=== PATIENT | female | born 1975 | race Caucasian/White ===

== ENCOUNTER 2017-12-28 10:03 | Emergency (ER) | payer OTHER ==
[~2017-12-28] VITALS: Ht 182.9 cm; Wt 95.7 kg
[2017-12-28] MEDS ORDERED: ONDANSETRON ODT 4 MG PO ONE (10:30)
[2017-12-28] MEDS ORDERED: OXYcodone/APAP 10/325MG TABLET PO ONE (10:30)
[2017-12-28] MEDS ORDERED: MEDR10TA PO (10:38)
[2017-12-28] MEDS ORDERED: ONDANSETRON ODT 4 MG ONE (10:46)
[2017-12-28] MEDS ORDERED: OXYcodone/APAP 10/325MG TABLET ONE (10:46)
[2017-12-28 11:08] LABS: BASOPHILS # (AUTO) 0.04 x10^3/uL (0-0.1); BASOPHILS % (AUTO) 1 % (0-1); EOSINOPHILS # (AUTO) 0.23 x10^3/uL (0-0.4); EOSINOPHILS % (AUTO) 3 % (1-7); LYMPHOCYTES # (AUTO) 2.43 x10^3/uL (1-3.4); LYMPHOCYTES % (AUTO) 28 % (22-44); MD NO; MEAN CORPUSCULAR HEMOGLOBIN 31.4 pg (27.0-34.8); MEAN CORPUSCULAR HGB CONC 34.7 g/dL (32.4-35.8); MEAN CORPUSCULAR VOLUME 90.5 fL (80-100); MEAN PLATELET VOLUME 8.8 fL (7.4-10.4); MONOCYTES # (AUTO) 0.53 x10^3/uL (0.2-0.8); MONOCYTES % (AUTO) 6 % (2-9); NEUTROPHILS # (AUTO) 5.61 x10^3/uL (1.8-6.8); NEUTROPHILS % (AUTO) 63 % (42-75); PLATELET COUNT 232 x10^3/uL (130-400); RED BLOOD COUNT 4.37 x10^6/uL (3.82-5.3); RED CELL DISTRIBUTION WIDTH 13.1 % (9.6-15.2)
[2017-12-28 11:12] LABS: ALANINE AMINOTRANSFERASE 54 U/L (12-78); ALBUMIN 3.3 g/dL (3.4-5.0); ANION GAP 7 mmol/L (5-15); CALCIUM 8.3 mg/dL (8.5-10.1); CHLORIDE 106 mmol/L (98-107); CREATININE 0.93 mg/dL (0.55-1.02)
[2017-12-28 11:29] LABS: ALKALINE PHOSPHATASE 46 U/L (45-117); BILIRUBIN,TOTAL 0.2 mg/dL (0.2-1.0); TOTAL PROTEIN 6.8 g/dL (6.4-8.2)
[2017-12-28 11:30] LABS: MICROSCOPIC NOT IND
[2017-12-28 11:33] LABS: CULTURE INDICATED? NO
[2017-12-28 13:46] VITALS: BP 114/74
== END 2017-12-28 13:50 | disposition home or self-care (01) ==
LOC: ED 11:33
DX: O03.4 Incomplete spontaneous abortion without complication (principal); O99.331 Smoking (tobacco) complicating pregnancy, first trimester; Z3A.01 Less than 8 weeks gestation of pregnancy
CPT/HCPCS: 36415; 76830; 80053; 81003; 84702; 85025; 86901; 99285; Q0162

== ENCOUNTER → 2018-02-26 | Outpatient (CLI) | payer OTHER ==
[~2018-02-26] MED LIST: MEDR10TA PO; None at this Time
[2018-02-26 15:07] LABS: MICROSCOPIC NOT IND
[2018-02-26 15:08] LABS: BASOPHILS # (AUTO) 0.05 x10^3/uL (0-0.1); BASOPHILS % (AUTO) 1 % (0-1); EOSINOPHILS # (AUTO) 0.21 x10^3/uL (0-0.4); EOSINOPHILS % (AUTO) 3 % (1-7); LYMPHOCYTES # (AUTO) 2.63 x10^3/uL (1-3.4); LYMPHOCYTES % (AUTO) 36 % (22-44); MD NO; MEAN CORPUSCULAR HEMOGLOBIN 30.7 pg (27.0-34.8); MEAN CORPUSCULAR HGB CONC 34.2 g/dL (32.4-35.8); MEAN CORPUSCULAR VOLUME 89.8 fL (80-100); MEAN PLATELET VOLUME 9.2 fL (7.4-10.4); MONOCYTES # (AUTO) 0.54 x10^3/uL (0.2-0.8); MONOCYTES % (AUTO) 7 % (2-9); NEUTROPHILS # (AUTO) 3.95 x10^3/uL (1.8-6.8); NEUTROPHILS % (AUTO) 54 % (42-75); PLATELET COUNT 232 x10^3/uL (130-400); RED BLOOD COUNT 4.95 x10^6/uL (3.82-5.3); RED CELL DISTRIBUTION WIDTH 13.4 % (9.6-15.2)
[2018-02-26 15:12] LABS: CULTURE INDICATED? NO
[2018-02-26 15:19] LABS: ALANINE AMINOTRANSFERASE 40 U/L (12-78); ALBUMIN 4.1 g/dL (3.4-5.0); ANION GAP 5 mmol/L (5-15); CALCIUM 8.8 mg/dL (8.5-10.1); CHLORIDE 108 mmol/L (98-107); CREATININE 1.05 mg/dL (0.55-1.02)
[2018-02-26 15:23] LABS: ALKALINE PHOSPHATASE 55 U/L (45-117); BILIRUBIN,TOTAL 0.2 mg/dL (0.2-1.0); TOTAL PROTEIN 7.9 g/dL (6.4-8.2)
== END | disposition home or self-care (01) ==
LOC: STAR 13:58
PROVIDERS: ATTEND Obstetrics & Gynecology Gynecology
DX: Z01.818 Encounter for other preprocedural examination (principal); M54.16 Radiculopathy, lumbar region
CPT/HCPCS: 36415; 80053; 81003; 84702; 85025

== ENCOUNTER 2018-03-13 10:17 | Day surgery (SDC) | payer OTHER ==
[~2018-03-13] VITALS: Ht 180.3 cm; Wt 102.2 kg
[2018-03-13] MEDS ORDERED: MIDAZOLAM 1 MG/ML, 2ML ONE (10:33)
[2018-03-13] MEDS ORDERED: FENTANYL PF 250 MCG/5ML ONE (10:34)
[2018-03-13] MEDS ORDERED: LACTATED RINGERS 1,000 ML IV SCH (11:02)
[2018-03-13 11:03] VITALS: BP 130/89
[2018-03-13] MEDS ORDERED: ACETAMINOPHEN 500 MG TABLET PO ONE (11:30)
[2018-03-13] MEDS ORDERED: GABAPENTIN 300 MG CAPSULE PO ONE (11:30)
[2018-03-13] MEDS ORDERED: SILVER NITRATE STICK TP ONE (11:58)
[2018-03-13] MEDS ORDERED: BUPIVACAINE/PF-EPI 0.25% 1:200K ONE (11:58)
[2018-03-13] MEDS ORDERED: PROMETHAZINE 25 MG/ML, 1ML IM PRN ×2 (12:00)
[2018-03-13] MEDS ORDERED: MORPHINE SULFATE 4 MG/ML, 1ML IVPush PRN (12:00)
[2018-03-13] MEDS ORDERED: LABETALOL 5MG/ML, 20ML IV PRN (12:00)
[2018-03-13] MEDS ORDERED: PROMETHAZINE 25 MG/ML, 1ML IV PRN (12:00)
[2018-03-13] MEDS ORDERED: PROMETHAZINE 12.5 MG SUPP PR PRN (12:00)
[2018-03-13] MEDS ORDERED: ONDANSETRON 2MG/ML, 2ML IV PRN (12:00)
[2018-03-13] MEDS ORDERED: MEPERIDINE/PF 25MG/0.5ML IVPush PRN (12:00)
[2018-03-13] MEDS ORDERED: HYDROmorphone 1 MG/ML, 1ML IV PRN (12:00)
[2018-03-13] MEDS ORDERED: PROMETHAZINE 25 MG SUPP PR PRN (12:00)
[2018-03-13] MEDS ORDERED: OXYcodone 5 MG/5 ML ORAL.SOL UDC PO PRN (12:00)
[2018-03-13] MEDS ORDERED: ONDANSETRON ODT 8 MG PO PRN (12:00)
[2018-03-13] MEDS ORDERED: hydrALAzine 20 MG/ML, 1ML IV PRN (12:00)
[2018-03-13] MEDS ORDERED: FENTANYL PF 100 MCG/2ML IV PRN (12:00)
[2018-03-13] MEDS ORDERED: ONDANSETRON 2MG/ML, 2ML ONE (12:38)
[2018-03-13] MEDS ORDERED: ROCURONIUM 10 MG/ML,10ML ONE (12:38)
[2018-03-13] MEDS ORDERED: PROPOFOL 10 MG/ML, 20ML ONE (12:38)
[2018-03-13] MEDS ORDERED: GLYCOPYRROLATE 0.2MG/1ML, 5ML ONE (12:38)
[2018-03-13] MEDS ORDERED: DEXAMETHASONE 4 MG/ML, 1ML ONE (12:38)
[2018-03-13] MEDS ORDERED: CEFAZOLIN 1,000 MG ONE (12:38)
[2018-03-13] MEDS ORDERED: NEOSTIGMINE 1 MG/ML, 10ML ONE (12:38)
[2018-03-13] MEDS ORDERED: FENTANYL PF 100 MCG/2ML ONE (13:10)
[2018-03-13] MEDS ORDERED: OXYcodone 5 MG/5 ML ORAL.SOL UDC ONE (13:36)
[2018-03-13] MEDS ORDERED: KETOROLAC 30 MG/1 ML ONE (13:38)
[2018-03-13] MEDS ORDERED: KETOROLAC 30 MG/1 ML IVPush PRN (14:00)
[2018-03-13] MEDS ORDERED: MEPERIDINE/PF 50 MG/ML ONE (14:01)
== END 2018-03-13 16:00 | disposition home or self-care (01) ==
LOC: OUT 10:17
PROVIDERS: ATTEND Obstetrics & Gynecology Gynecology
DX: Z30.2 Encounter for sterilization (principal); J45.909 Unspecified asthma, uncomplicated; Z98.890 Other specified postprocedural states
CPT/HCPCS: 36415; 58670; 81025; 86850; 86900; 88302; J0690; J1100; J1885; J2175; J2250; J2405; J2704; J2710; J3010; J3490; J7120